=== PATIENT | female | born 1975 | race Asian ===

== ENCOUNTER 2019-10-10 14:55 | Emergency (ER) | payer MEDICAID ==
[~2019-10-10] VITALS: Ht 162.6 cm; Wt 53.5 kg
[2019-10-10 14:55] VITALS: BP_SYST 112
--- NOTE | 2019-10-10 14:55 | NUR ---
BROUGHT BACK TO BED #4 AND TRIAGED. REPORT GIVEN TO RUSS
--- NOTE | 2019-10-10 15:00 | NUR ---
Patient presented to ER with right eye hemorrhage. Patient A&Ox4, afebrile, skin pink and warm, ambulatory to ER, denies N/V/D, pain 12/06. Patirnt states right eye hemorrhage statred about an hour prior to ER visit. Patient states sudden onset,denies any precipitating factors. Patient states she was standing and talking when right eye hemorrhage started.
--- NOTE | 2019-10-10 15:45 | NUR ---
ER Dr. Bridges at bedside examining patient.
[2019-10-10 16:05] VITALS: BP_SYST 118
--- NOTE | 2019-10-10 16:05 | NUR ---
Patient given written and verbal discharge instructions and verbalizes understanding. ER MD discussed with patient the results and treatment provided. Patient in stable condition. ID arm band removed. No Rx given. Patient educated on pain management and to follow up with PMD. Pain Scale 1/10 tolerable for patient. Opportunity for questions provided and answered.
== END 2019-10-10 16:05 | disposition home or self-care (01) ==
LOC: SED 14:55
DX: H11.32 Conjunctival hemorrhage, left eye (principal)
CPT/HCPCS: 99282; 99283